=== PATIENT | female | born 1955 | race Caucasian/White ===

== ENCOUNTER 2020-01-13 10:49 | Outpatient (CLI) | payer MEDICARE, BC, SELFPAY ==
--- NOTE | 2020-01-13 11:02 | MM_ITS ---
WS: [id number] BILATERAL SCREENING DIGITAL MAMMOGRAM WITH CAD HISTORY: SCREEN COMPARISON: 07/23/2018 and 06/24/2017 and 06/05/2016 Bilateral CC and MLO views submitted. Computer aided detection analyzed. Breast composition: There are scattered areas of fibroglandular density. No suspicious masses, microc alcifications or architectural distortion. Benign calcifications in the anterior aspect of each breas t. MM/[place] [id number] IMPRESSION: BI-RADS: 2-Benign FOLLOW UP: 1 Year Follow-up
--- NOTE | 2020-01-13 14:08 | XR_ITS ---
WS: [id number] SCREENING DEXA SCAN [employer] CLINICAL INFORMATION: SCREENING COMPARISON: December 16, 2017 FINDINGS: The L1-L4 bone mineral density measures 1.337 g/cm2. This corresponds to a T score score of 1.3 and Z score of 2.6. Left femoral neck bone mineral density measures 0.895 g/cm2. This corresponds to a T score of -0.9 an d Z score of 0.1. Right femoral neck bone mineral density measures 0.963 g/cm2. This corresponds to a T score -0.4of an d Z score of 0.7. Mean femoral neck bone mineral density measures 0.929 g/cm2. This corresponds to a T score of -0.6 an d Z score of 0.4. XR/XR DEXA axial skeleton* [id number] IMPRESSION: Normal bone mineralization. Patient's FRAX calculated 10 year probability for major osteoporotic fracture i s 8.0 % and osteoporotic hip fracture is 0.6%.
== END 2020-01-13 10:50 | disposition home or self-care (01) ==
LOC: RADSHAW 10:56
PROVIDERS: PCP Family Medicine; Visit Provider Family Medicine
DX: Z12.31 Encounter for screening mammogram for malignant neoplasm of breast (principal); Z13.820 Encounter for screening for osteoporosis
CPT/HCPCS: 77067; 77080

== ENCOUNTER 2021-06-01 19:28 | Emergency (ER) | payer MEDICARE, BC, SELFPAY ==
[2021-06-01 19:46] VITALS: BP 134/65; PULSE 74; RESP 16; TEMP 36.6; O2SAT 97; BMI 25.8
--- NOTE | 2021-06-01 20:45 | XRR_ITS ---
PROCEDURE INFORMATION: Exam: XR Right Hip Exam date and time: 06/01/2021 8:45 PM Age: 65 years old Clinical indication: Injury or trauma; Fall; Blunt trauma (contusions or hematomas); Right; Patient HX: Patient slipped on ice and fell this evening. C/O RT hip pain. ; Additional info: Fall, pain TECHNIQUE: Imaging protocol: XR Right hip. Views: 2 or 3 views hip with pelvis when performed. COMPARISON: [facility] Lumbar Spine 5 views 05/29/2017 10:27 AM FINDINGS: Bones/joints: Alignment is normal. Joint spaces are preserved. No acute fracture. The visible portion of the pelvis and sacrum is intact. Soft tissues: Visible soft tissues are unremarkable.
--- NOTE | 2021-06-01 20:45 | XRR_ITS ---
Ordering Provider/Ordering MD: Nato Leija MD Date of Service: 06/01/21 Procedure(s): XR hip RT 2-3V wo/w pel* [id number] Accession Number(s): [id number] Report Number: [id number] PROCEDURE INFORMATION: Exam: XR Right Hip Exam date and time: 06/01/2021 8:45 PM Age: 65 years old Clinical indication: Injury or trauma; Fall; Blunt trauma (contusions or hematomas); Right; Patient HX: Patient slipped on ice and fell this evening. C/O RT hip pain. ; Additional info: Fall, pain TECHNIQUE: Imaging protocol: XR Right hip. Views: 2 or 3 views hip with pelvis when performed. COMPARISON: [facility] Lumbar Spine 5 views 05/29/2017 10:27 AM FINDINGS: Bones/joints: Alignment is normal. Joint spaces are preserved. No acute fracture. The visible portion of the pelvis and sacrum is intact. Soft tissues: Visible soft tissues are unremarkable. XR/XR hip RT 2-3V wo/w pel* [id number] IMPRESSION: No acute findings. Dictated By: Charlie Mercer MD Signed By: Charlie Mercer MD Signed Date/Time: 06/01/212116 DD/ 44 PROCEDURE INFORMATION: Exam: XR Left Hip Exam date and time: 06/01/2021 8:45 PM Age: 65 years old Clinical indication: Injury or trauma; Fall; Blunt trauma (contusions or hematomas); Patient HX: Patient slipped on ice and fell this evening. C/O left hip pain. ; Additional info: Fall, pain TECHNIQUE: Imaging protocol: XR Left hip. Views: 2 or 3 views hip with pelvis when performed. COMPARISON: [facility] Lumbar Spine 5 views 05/29/2017 10:27 AM FINDINGS: Bones/joints: Alignment is normal. Joint spaces are preserved. No acute fracture. The visible portion of the pelvis and sacrum is intact. Soft tissues: Visible soft tissues are unremarkable. [facility] XR/XR hip BI 3-4V wo/w pel [id number] IMPRESSION: No acute findings.
--- NOTE | 2021-06-01 23:42 | W.ED.FALL ---
HPI - Fall General: Chief Complaint: Fall Stated Complaint: Fell on Ice\Back Pain Time Seen by Provider: 06/01/21 23:33 History of Present Illness: Patient is a 65-year-old female who comes to the ED with left hip pain after fall. Fall occurred just prior to arrival. Patient slipped on ice and fell backwards landing on left hip area. Patient says she landed on some gravel. Denies any head trauma or loss of consciousness. She reports having 9 out of 10 pain in her left hip area and says it hurts when she stands up and walks. Denies any pain radiating down the leg. Denies any weakness to lower extremities, bladder or bowel incontinence or pelvic anesthesia. Associated symptoms-after fall: Denies abdominal pain, chest pain, headache(s), hematuria or neck pain Review of Systems Const: Denies: fever(s), chills or fatigue Eyes: Denies: change in vision or eye discomfort ENMT: Denies: throat pain, odynophagia, nasal discharge or nasal congestion Card: Denies: chest pain, palpitations, edema, swelling of feet/ankles, dyspnea on exertion or orthopnea Resp: Denies: dyspnea, productive cough or non-productive cough GI: Denies: abdominal pain, nausea, vomiting, diarrhea, constipation or hematochezia : Denies: flank pain, dysuria or hematuria Musc: Reports: back pain (left hip); Denies: neck pain or extremity swelling Skin/Breast: Denies: rash or new lesions Neuro: Denies: headache(s), numbness in extremities or weakness in extremities [facility] ED PFSH: Medical History No pertinent family history No pertinent past medical history Physical Exam Const: COMMON NORMALS: no acute distress, patient oriented x3, healthy appearing and alert GENERAL APPEARANCE: cooperative and comfortable HENMT: COMMON NORMALS: normocephalic HEAD & SCALP: normocephalic MOUTH: Normal oral and palatal mucosa present THROAT: posterior oropharynx normal and uvula midline Neck/C-Spine: COMMON NORMALS: supple GENERAL: Yes normal visual inspection Resp: COMMON NORMALS: normal respiratory effort, No retractions, No use of accessory muscles and clear to auscultation bilaterally AUSCULTATION: clear to auscultation bilaterally Cardio: COMMON NORMALS: regular rate, regular rhythm, S1 normal heart sound present, S2 normal heart sound present, No gallops present (Cardio), No clicks present (Cardio), No murmurs present (Cardio) and Peripheral pulses 2+ throughout RATE: regular rate RHYTHM: regular rhythm HEART SOUNDS: S1 normal heart sound present and S2 normal heart sound present PERIPHERAL PULSES: Peripheral pulses 2+ throughout GI: COMMON NORMALS: Normal to inspection, nondistended, normoactive bowel sounds present, Soft to palpation, non-tender and no masses PALPATION: Yes Soft to palpation : COMMON NORMALS: Yes no CVA tenderness BLADDER/KIDNEY EXAM: Yes no CVA tenderness Back/Pelvis: COMMON NORMALS: no CVA tenderness LUMBAR SPINE/LOWER BACK: No lumbar spinal tenderness and Yes other soft tissue findings Other lumbar soft tissue findings laterality: left Left other lumbar soft tissue findings details: tenderness (lower lateral over il iliac crest) Extremity: COMMON NORMALS: normal to inspection Neuro: COMMON NORMALS: patient oriented x3 and moves all extremities SENSORIUM/ORIENTATION: Yes alert Skin: GENERAL SKIN EXAM: dry skin Course Vital Signs: Vital signs: Vital Signs Temperature 97.9 F 06/01/21 19:46 Pulse Rate 60 06/01/21 23:47 Respiratory Rate 16 06/01/21 23:47 Blood Pressure 137/79 06/01/21 23:47 Pulse Oximetry 99 06/01/21 23:47 MDM - Fall Medical Decision Making Patient is a 65-year-old female who comes to the ED with left hip pain after having a fall. Patient slipped on the snow on ice and fell hitting the gravel. Most of her pain is in the left hip. She says it hurts when she ambulates. Vitals stable patient has some tenderness upon palpation over the left iliac crest region. Denies any cauda equina symptoms. Pain does not radiate down the leg. X-ray of hip and pelvis show no acute fractures or findings. Patient diagnosed with acute hip pain and discharged home with a prescription for Celebrex and methocarbamol. She was told to follow-up with her PCP in the next 5 to 7 days for reevaluation. Return to ED precautions given. Patient understood and agreed with plan. Lab Data Radiology Impressions Hip/Pelvis X-Ray 06/01/21 20:45 IMPRESSION: No acute findings. Discharge Plan Discharge Patient Disposition: Home Clinical Impression: Acute hip pain Qualifiers: Laterality: left Qualified Code(s): M25.552 - Pain in left hip Fall as cause of accidental injury at home as place of occurrence Qualifiers: Encounter type: initial encounter Qualified Code(s): W19.XXXA - Unspecified fall, initial encounter Condition: Stable Prescriptions: New methocarbamol 750 mg tablet 750 mg PO Q8H PRN (Reason: muscle pain and spasms) Qty: 20 0RF celecoxib 100 mg capsule 100 mg PO BID PRN (Reason: pain) Qty: 20 0RF Discharge Orders: Discharge ED (Routine); Ordered 06/01/21 Ordered By: Gino Sandhu Referrals: Simon Law MD [Primary Care Provider] - Discharge Diet: Regular Discharge Activity: Increase activity as tolerated Patient Instructions: Fall Prevention (ED), Hip Pain (ED) Activity Restrictions/Additional Instructions: Follow-up with medical provider as directed in 5 to 7 days for reevaluation. Apply cold pack on sore area of hip and rest, limit activity for the next couple days to allow for healing. Take medications as prescribed. Methocarbamol is a muscle relaxer and can cause some drowsiness so take at night before going to bed. Return to the ER or your medical provider if condition worsens. Please read and understand discharge instructions. Thank you for choosing [facility] for your healthcare needs today. Please realize this is an emergency room and that we are providing you with a medical screening exam and this may not be complete and all inclusive of all the testing and or work up that you may need to determine your ailment or severity of your illness. It is very important that you follow up as instructed or that you return to the Emergency Department should you have concerns or if your condition changes or worsens in any way. Coding Level of Care Code ED Grading Machine Feeder for [employer] Exam Comprehensive
[2021-06-01 23:47] VITALS: BP 137/79; PULSE 60; RESP 16; O2SAT 99
[2021-06-01] MEDS: orphenadrine 30 mg/mL Inj 2 mL 60 MG IM (23:55)
[2021-06-01] MEDS: HYDROcodone-acetaminophen 5-325 mg Tablet 1 TAB PO (23:55)
[2021-06-02] MEDS: HYDROcodone-acetaminophen 5-325 mg Tablet 1 TAB PO (00:01)
== END 2021-06-02 00:02 | disposition home or self-care (01) ==
PROVIDERS: Emergency Provider Physician Assistant; PCP Family Medicine
DX: M25.552 Pain in left hip (principal); W00.0XXA Fall on same level due to ice and snow, initial encounter
CPT/HCPCS: 73502; 73522; 96372; 99283; J2360

== ENCOUNTER 2021-06-06 13:59 | Emergency (ER) | payer MEDICARE, BC, SELFPAY ==
[2021-06-06 14:13] VITALS: BP 128/71; PULSE 73; RESP 18; TEMP 36.1; O2SAT 98; BMI 25.8
--- NOTE | 2021-06-06 19:16 | W.ED.BACK ---
HPI - Back Pain/Injury General: Chief Complaint: Back Pain/Injury Stated Complaint: Severe pain on lt back lower side Time Seen by Provider: 06/06/21 19:16 History of Present Illness: Patient fell on 01 June when she slipped on the ice landing on her left side. Patient was evaluated in the ER and noted no fractures of her left hip or pelvis. Patient comes back today for persistent left rib pain. Patient appears nontoxic, patient does appear in moderate pain. MD elicited complaint: back pain Pertinent past history: recent trauma Onset (ago): day(s) Severity: moderate Exacerbating factors: movement Relieving factors: none Review of Systems Musc: Reports: back pain (Left posterior rib pain.) [facility] ED PFSH: Medical History No pertinent family history No pertinent past medical history Physical Exam Const: COMMON NORMALS: alert HENMT: COMMON NORMALS: atraumatic HEAD & SCALP: atraumatic Eye: GENERAL EYE: appearance normal, both eyes and all related structures Neck/C-Spine: COMMON NORMALS: full ROM Chest: CHEST: Yes tenderness (Left posterior lower ribs) Resp: COMMON NORMALS: normal respiratory effort and clear to auscultation bilaterally AUSCULTATION: clear to auscultation bilaterally Cardio: COMMON NORMALS: regular rate and regular rhythm RATE: regular rate RHYTHM: regular rhythm GI: COMMON NORMALS: Soft to palpation and non-tender PALPATION: Yes Soft to palpation Extremity: COMMON NORMALS: normal to inspection Neuro: SENSORIUM/ORIENTATION: Yes alert Psych: COMMON NORMALS: cooperative Skin: COMMON NORMALS: no rashes or lesions noted GENERAL SKIN EXAM: no rashes or lesions noted Course Vital Signs: Vital signs: Vital Signs Temperature 97.0 F L 06/06/21 14:13 Pulse Rate 73 06/06/21 14:13 Respiratory Rate 18 06/06/21 14:13 Blood Pressure 128/71 06/06/21 14:13 Pulse Oximetry 98 06/06/21 14:13 MDM - Back Pain/Injury Medical Decision Making 65-year-old female comes in today with pain to the left rib area. On exam patient has tenderness in the left posterior lower ribs. Respirations are even lungs are clear to auscultation. Vital signs are normal. Differential diagnosis includes fracture, sprain, intervertebral disc disease. X-ray of the ribs and chest indicated normal lung expansion, no signs of rib fracture, significant degenerative disc disease of the thoracic spine. I believe patient may have a rib fracture that just is not seen with plain films due to the tenderness in this rib area. No signs of serious illness or injury is noted. Patient was given a dose of morphine in the ER which did improve her pain. We will write for short course of hydrocodone for further treatment. Patient reported understanding and agreed to plan with need for follow-up with primary care. Labs Radiology Impressions Ribs X-Ray 06/06/21 19:32 IMPRESSION: 1. No acute left rib fracture or other acute osseous abnormality. 2. No acute abnormality demonstrated. Discharge Plan Discharge Patient Disposition: Home Clinical Impression: Rib pain on left side, DDD (degenerative disc disease), thoracic Condition: Stable Prescriptions: New hydrocodone-acetaminophen 5-325 mg tablet 1 tab PO Q6H PRN (Reason: pain (scale score 7-10)) Qty: 14 0RF No Action methocarbamol 750 mg tablet 750 mg PO Q8H PRN (Reason: muscle pain and spasms) Qty: 20 0RF celecoxib 100 mg capsule 100 mg PO BID PRN (Reason: pain) Qty: 20 0RF Discharge Orders: Discharge ED (Routine); Ordered 06/06/21 Ordered By: Maurilio Juan Referrals: Simon Law MD [Primary Care Provider] - Discharge Diet: Usual diet Discharge Activity: Increase activity as tolerated Patient Instructions: Musculoskeletal Pain (ED), Opioid Safety Activity Restrictions/Additional Instructions: Activity as tolerated. Use a walker to help with walking. Use acetaminophen for further pain relief. Use hydrocodone for breakthrough pain. Use ice and heat to the area for further comfort. Drink plenty of water with medication. Follow-up with primary care for further evaluation and treatment. Coding Level of Care Code ED Assistant Cross Country Coach for Chg Fwd History Problem Focused Exam Comprehensive Medical Decision Making Low Complexity Time Spent (min) 20
--- NOTE | 2021-06-06 19:32 | XRR_ITS ---
PROCEDURE INFORMATION: Exam: XR Left Ribs with PA Chest Exam date and time: 06/06/2021 7:32 PM Age: 65 years old Clinical indication: Pain; Other: Lt. Lower ribs; Additional info: Fall injury TECHNIQUE: Imaging protocol: XR Left ribs with PA chest. Views: 3 views COMPARISON: [place] Chest 1 [place] [id number] 03/16/2018 6:12 PM FINDINGS: Lungs: Unremarkable. No consolidation. Pleural spaces: No pleural effusion. No pneumothorax. Heart/Mediastinum: Unremarkable. No cardiomegaly. Vasculature: The thoracic aorta is mildly atherosclerotic. Bones/joints: Degenerative spine changes are noted. No acute left rib fracture or other acute osseous abnormality. XR/XR ribs LT mn 3V w CXR1V [id number] IMPRESSION: 1. No acute left rib fracture or other acute osseous abnormality. 2. No acute abnormality demonstrated.
[2021-06-06] MEDS: morphine 4 mg/mL SDV 1 mL IM (19:43)
== END 2021-06-06 20:41 | disposition home or self-care (01) ==
PROVIDERS: Emergency Provider Nurse Practitioner Family; PCP Family Medicine
DX: R07.81 Pleurodynia (principal); M51.34 Other intervertebral disc degeneration, thoracic region
CPT/HCPCS: 71101; 96372; 99283; J2270

== ENCOUNTER 2021-10-26 14:47 | Outpatient (CLI) | payer MEDICARE, BC, SELFPAY ==
--- NOTE | 2021-10-26 14:56 | MR_ITS ---
WS: [id number] MRI BRAIN WITH AND WITHOUT CONTRAST HISTORY: EXPRESSIVE APHASIA COMPARISON: 05/14/2016 TECHNIQUE: Multiplanar imaging performed through the brain with MultiHance 17 ml's IV. No acute infarcts are seen. Ramirez-white matter differentiation is well preserved. Mild progressive of small vessel ischemic disease. No prior infarct. No hemorrhage. No susceptibility artifacts or prior lacunar infarcts. Ventricles and extra-axial spaces are normal. Clivus and pituitary gland are normal. Visualized posterior fossa and brainstem are also normal. Postcontrast images are negative for masses or vascular malformations. Dural venous sinuses are normal. Paranasal sinuses: Well aerated with no significant disease. Mastoid air cells: Normal. Calvarium and scalp: Normal. MR/MR head wo/w con [id number] IMPRESSION: 1. No acute infarct or enhancing mass. 2. No hemorrhage. 3. Mild small vessel ischemic disease with mild progression since 2016.
[2021-10-26] MEDS: gadobenate dimeglumine 20 mL vial IV (15:40)
== END 2021-10-26 14:48 | disposition home or self-care (01) ==
PROVIDERS: PCP Family Medicine; Visit Provider Family Medicine
DX: R47.01 Aphasia (principal)
CPT/HCPCS: 70553

== ENCOUNTER → 2023-03-24 08:39 | Outpatient (BNVA) | payer MEDICARE, OTHER, BC, SELFPAY | PROVIDERS: PCP Family Medicine; Referring Provider Family Medicine; Visit Provider Specialist | DX: G30.9 Alzheimer's disease, unspecified (principal); F02.80 Dementia in other diseases classified elsewhere, unspecified severity, without behavioral disturbance, psychotic disturbance, mood disturbance, and anxiety | CPT/HCPCS: 96116; 99205 ==

== ENCOUNTER 2023-04-22 07:51 | Outpatient (CLI) | payer MEDICARE, BC, SELFPAY ==
--- NOTE | 2023-04-22 08:45 | MR_ITS ---
WS: [id number] MRI HEAD WITHOUT CONTRAST TECHNIQUE: Sagittal T1, T2 axial, T2 axial FLAIR, axial and coronal T1 images, axial susceptibility w eighted imaging, axial diffusion weighted images, and coronal T2 images were obtained. CLINICAL INFORMATION: G30.9 - Alzheimer's disease, unspecified COMPARISON: MRI 10/26/2021 FINDINGS: No evidence of restricted diffusion to suggest acute ischemia. Ventricular system and basal cisterns are patent. Mild small vessel changes. Moderate parenchymal volume loss. Normal posterior fossa. Norm al vascular flow voids at the skull base. No extra-axial fluid collections. No evidence of mass or ma ss effect. Paranasal sinuses and mastoid air cells are well aerated. Normal optic chiasm and pituitary infundibu lum. Moderate symmetric atrophy temporal lobes and hippocampal formations. No hemosiderin on the susc eptibly weighted images. IMPRESSION: 1. No evidence of restricted diffusion to suggest acute ischemia. 2. Mild small vessel changes with moderate parenchymal volume loss which appears slightly progressed compared to 2021 3. Parenchymal volume loss slightly more prominent in the bilateral parietal and temporal lobes whic h can be seen with Alzheimer's dementia in the appropriate clinical setting 4. No hemosiderin on susceptibly weighted images. 5. Moderate symmetric atrophy temporal lobes and hippocampal formations.
== END 2023-04-22 07:52 | disposition home or self-care (01) ==
LOC: RAD 07:51
PROVIDERS: PCP Family Medicine; Visit Provider Specialist
DX: G30.9 Alzheimer's disease, unspecified (principal); F02.80 Dementia in other diseases classified elsewhere, unspecified severity, without behavioral disturbance, psychotic disturbance, mood disturbance, and anxiety
CPT/HCPCS: 70551

== ENCOUNTER → 2023-07-02 11:12 | Outpatient (BNVA) | payer MEDICARE, BC, SELFPAY | PROVIDERS: PCP Family Medicine; Visit Provider Specialist | DX: G30.9 Alzheimer's disease, unspecified (principal); F02.80 Dementia in other diseases classified elsewhere, unspecified severity, without behavioral disturbance, psychotic disturbance, mood disturbance, and anxiety | CPT/HCPCS: 99213 ==

== ENCOUNTER 2023-08-03 11:39 | Emergency (ER) | payer MEDICARE, BC, SELFPAY ==
[2023-08-03 11:39] VITALS: BP 139/84; PULSE 62; RESP 18; TEMP 36.5; O2SAT 99
--- NOTE | 2023-08-03 11:47 | ED_ITS ---
HPI - Back Pain/Injury General: Chief Complaint: Back Pain/Injury Stated Complaint: back pain Time Seen by Provider: 08/03/23 11:42 Source: patient and family () Mode of arrival: wheelchair Limitations: no limitations History of Present Illness: Patient is a 67-year-old female presents to ED today along with her for evaluation of lower back pain. Patient states she is having pain radiating down into her right buttock and all the way down to my foot . Patient states she has had similar discomforts in the past that normally will go away with time and conservative treatment at home. Patient's states he gave her two hydrocodone earlier today that somewhat seem to take the edge off but she doesn't like how they make her feel. Patient has not noticed any weakness to her legs. She is not having any numbness, tingling, loss of sensation, color/temperature changes. Primary care is Dr. Law. Denies saddle anesthesia or bowel or bladder dysfunction. Symptoms have been present for about a month. MD elicited complaint: back pain Pertinent past history: prior back pain Onset (ago): month(s) Timing: intermittent Severity: severe Similar Symptoms Previously: Yes Location: lumbar spine and right lower back Radiation: buttocks and right leg below the knee Exacerbating factors: sitting upright Relieving factors: walking Associated symptoms: Reports no associated symptoms; Deny dysuria Treatments prior to arrival: prescription analgesics Work related injury: No Review of Systems : Denies: flank pain or dysuria Musc: Reports: back pain; Denies: neck pain, extremity pain, extremity swelling, joint pain, joint swelling, joint redness, joint warmth, joint stiffness, limited range of motion, muscle cramps, muscle weakness or decrease in muscle mass Skin/Breast: Denies: rash Neuro: Denies: headache(s), numbness in extremities, weakness in extremities or sensory changes PFS ED PFSH: Medical History No pertinent past medical history No pertinent family history Physical Exam Const: COMMON NORMALS: average body habitus, patient oriented x3, no limitations, healthy appearing, alert and well nourished GENERAL APPEARANCE: cooperative and in distress (appears uncomfortable secondary to pain) Back/Pelvis: COMMON NORMALS: thoracic and lumbar spine normal to inspection and no thoracic nor lumbar tenderness THORACIC SPINE/UPPER BACK: Yes thoracic ROM normal, No thoracic spinal tenderness, No paraspinal muscle tenderness and No paraspinal muscle spasm LUMBAR SPINE/LOWER BACK: No lumbar spinal tenderness and Yes straight leg raise negative bilaterally PELVIS: Yes sciatic notch tenderness on the right SACROILIAC JOINTS: Yes SI joint(s) abnormal SI joint details: tender to palpation (R) SACRUM: no tenderness COCCYX: no tenderness Extremity: COMMON NORMALS: normal to inspection, full ROM, capillary refill normal, no clubbing, cyanosis or edema, no calf tenderness and no pedal edema GENERAL: Yes normal exam except as noted Neuro: COMMON NORMALS: patient oriented x3, moves all extremities, no focal motor deficits and no sensory deficits noted SENSORIUM/ORIENTATION: Yes alert DEEP TENDON REFLEXES: Right patellar reflex intensity grade: 2+ and Left patellar reflex intensity grade: 2+ Skin: COMMON NORMALS: no rashes or lesions noted GENERAL SKIN EXAM: no rashes or lesions noted Course Vital Signs: Vital signs: Vital Signs Temperature 97.7 F 08/03/23 11:39 Pulse Rate 65 08/03/23 12:22 Respiratory Rate 18 08/03/23 12:22 Blood Pressure 134/83 08/03/23 12:22 Pulse Oximetry 97 08/03/23 12:22 Oxygen Delivery Me thod Room Air 08/03/23 12:22 MDM - Back Pain/Injury Medical Decision Making Patient here for right-sided sciatica-like symptoms. No red flags on patient's history or physical exam. She was given IM steroids, NSAID, muscle relaxer here with good relief of her symptoms. She was ambulatory here without difficulty or assistance. Patient will be put on similar medications at home. She already takes Celebrex twice daily that she can continue. Recommend follow-up with primary care in 1 to 2 weeks if symptoms do not begin to improve. Differential Diagnosis Likely lumbar radiculopathy, sciatica and strain of lumbar region Medical Records I reviewed the patient's medical records. No radiology studies performed this visit Discharge Plan Discharge Patient Disposition: Home Clinical Impression: Sciatica Qualifiers: Laterality: right Qualified Code(s): M54.31 - Sciatica, right side Condition: Stable Prescriptions: New methocarbamol 500 mg tablet 1,000 mg PO Q8H Qty: 30 0RF prednisone 10 mg tablet 10 mg PO DAILY 6 Days Qty: 20 0RF Rx Instructions: Take 5 tabs on day 1-2, 4 tabs on day 3, 3 tabs on day 4, 2 tabs on day 5, and 1 tab on day 6 tramadol 50 mg tablet 50 mg PO Q6H PRN (Reason: pain) Qty: 14 0RF No Action losartan 50 mg tablet 1 tab PO DAILY rosuvastatin [Crestor] 10 mg tablet 1 tab PO DAILY celecoxib 200 mg capsule 200 mg PO BID Vitamin C 500 mg Capsule, Extended Release 500 mg PO DAILY galantamine 8 mg tablet 8 mg PO BID Vitamin D3 25 mcg (1,000 unit) Capsule 25 mcg PO DAILY Women's One Daily 18 mg iron-400 mcg-500 mg Ca Tablet 1 tab PO DAILY Hair, Skin and Nails (biotin) 10,000 mcg Tablet,Chewable 10,000 mcg PO DAILY Discharge Orders: Discharge ED (Routine); Ordered 08/03/23 Ordered By: Chapis Sahni Referrals: Simon Law MD [Primary Care Provider] - Patient Instructions: Piriformis Syndrome (ED), Sciatica Activity Restrictions/Additional Instructions: As we discussed we will treat you with steroids, pain medications, muscle relaxers. Continue your Celebrex that you are already prescribed as this is an anti-inflammatory. Please follow-up with your primary care provider in 1 to 2 weeks if symptoms do not seem to be improving. 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
[2023-08-03 12:01] VITALS: BP 134/83; PULSE 72; RESP 16; O2SAT 98
[2023-08-03] MEDS: orphenadrine 30 mg/mL Inj 2 mL 60 MG IM (12:19)
[2023-08-03] MEDS: ketorolac 30 mg/mL INJ IM (12:19)
[2023-08-03] MEDS: dexamethasone 10 mg/mL INJ 8 MG IM (12:19)
[2023-08-03 12:22] VITALS: BP 134/83; PULSE 65; RESP 18; O2SAT 97
--- NOTE | 2023-08-03 13:03 | PC.NURSE ---
PATIENT AMBULATED AROUND ROOM. PATIENT STATED BEFORE AMBULATING PAIN 0/10, AFTER AMBULATION 3/10. PROVIDER AWARE.
== END 2023-08-03 13:23 | disposition home or self-care (01) ==
PROVIDERS: Emergency Provider Physician Assistant; PCP Family Medicine
DX: M54.31 Sciatica, right side (principal)
CPT/HCPCS: 96372; 99284; J1100; J1885; J2360

== ENCOUNTER 2023-08-21 09:42 | Outpatient (CLI) | payer MEDICARE, BC, SELFPAY ==
--- NOTE | 2023-08-21 10:03 | MR_ITS ---
WS: [id number] MRI LUMBAR SPINE NONCONTRAST TECHNIQUE: Sagittal T1, T2 and STIR imaging. Axial T1 and T2 imaging. CLINICAL INFORMATION: LUMBAGO-SCIATICA COMPARISON: MRI 2009 FINDINGS: Mild lumbar curve. No acute compression. Straightening of the normal lumbar lordosis. Thoracolumbar k yphosis. L1-L2: Mild disc bulge with osteophytic ridging. Mild facet arthropathy. Foramen are patent. L2-L3: Mild disc bulging with slight effacement of the ventral thecal sac. Moderate facet arthropathy . Mild RIGHT foraminal narrowing. LEFT foramen is patent. L3-L4: Shallow central protrusion. Moderate central canal stenosis with impingement subarticular rece ss RIGHT greater than LEFT. Moderate facet arthropathy. Mild LEFT greater than RIGHT foraminal narrow ing. L4-L5: Mild disc bulging with moderate central canal stenosis. Impingement subarticular recess bilate rally. Moderate to advanced facet arthropathy. RIGHT foraminal protrusion with moderate RIGHT foramin al narrowing. L5-S1: Broad-based central protrusion impinges the traversing LEFT greater than RIGHT S1 nerve roots. Mild central canal stenosis. Moderate facet arthropathy. Mild RIGHT greater than LEFT foraminal narr owing. Visualized pelvic bony structures: Normal. Paravertebral soft tissues: Normal. Small RIGHT renal cysts. IMPRESSION: 1. Moderate central canal stenosis L3-L4 and L4-L5 with impingement of the subarticular recess bilat erally. 2. Mild central canal stenosis L5-S1 with a shallow central protrusion and impingement on the concepcion sing LEFT greater than RIGHT S1 nerve roots. 3. Moderate RIGHT L4-5 foraminal narrowing impinges the exiting RIGHT L4 nerve root. 4. Mild RIGHT greater than LEFT L5-S1 foraminal narrowing. 5. Moderate to advanced facet arthropathy L4-L5 and L5-S1.
== END 2023-08-21 09:43 | disposition home or self-care (01) ==
LOC: RAD 09:43
PROVIDERS: PCP Family Medicine; Visit Provider Family Medicine
DX: M51.17 Intervertebral disc disorders with radiculopathy, lumbosacral region (principal); M48.061 Spinal stenosis, lumbar region without neurogenic claudication; M51.27 Other intervertebral disc displacement, lumbosacral region; M48.07 Spinal stenosis, lumbosacral region; M47.817 Spondylosis without myelopathy or radiculopathy, lumbosacral region; M47.26 Other spondylosis with radiculopathy, lumbar region
CPT/HCPCS: 72148

== ENCOUNTER 2023-10-20 13:31 | Outpatient (RCR) | payer MEDICARE, BC, SELFPAY | END 2023-10-26 23:59 | disposition home or self-care (01) | LOC: SST 13:31 | PROVIDERS: Visit Provider Family Medicine | DX: R13.0 Aphagia (principal) | CPT/HCPCS: 92507; 92523 ==

== ENCOUNTER 2023-10-27 06:00 | Outpatient (RCR) | payer MEDICARE, BC, SELFPAY | END 2023-11-26 23:59 | disposition home or self-care (01) | LOC: SST 06:00 | PROVIDERS: Visit Provider Family Medicine | DX: R47.01 Aphasia (principal) | CPT/HCPCS: 92507 ==

== ENCOUNTER 2024-06-18 09:55 | Emergency (ER) | payer MEDICARE, BC, SELFPAY ==
[2024-06-18 10:03] VITALS: BP 119/69; PULSE 71; RESP 18; TEMP 36.6; O2SAT 99; BMI 25.8
--- NOTE | 2024-06-18 10:16 | CT_ITS ---
WS: [id number] CT HEAD NONCONTRAST HISTORY: severe OROPEZA TECHNIQUE: Contiguous axial imaging performed through the brain. Bone and soft tissue windows. Sagittal and coronal reformats reviewed. All CT scans at [facility] use at least one of these dose optimization techniques: automated exposure control; mA and/or kV adjustment per patient size (includes targeted exams where dose is matched to clinical indication); or iterative reconstruction. DLP: 1084.99 mGy.cm COMPARISON: 04/18/2016, MRI brain 04/22/2023 No acute intracranial hemorrhage, midline shift or mass effect. Mild to moderate volume loss and small vessel disease. Progressed since 2016 CT. No prior infarct. Ventricles: Normal size with no hydrocephalus. No inferior displacement of the cerebellar tonsils. Paranasal sinuses: Frothy secretions in the posterior RIGHT ethmoid air cells and the RIGHT sphenoid sinus. No air-fluid levels. Mastoid air cells: Well pneumatized. Calvarium and scalp: Skull is intact with no soft tissue edema or swelling. CT/CT head wo con* [id number] IMPRESSION: 1. No acute intracranial hemorrhage or edema. 2. Mild to moderate volume loss and small vessel disease. Mild progression sin ce 2016.
--- NOTE | 2024-06-18 10:30 | W.ED.HA ---
Documented by User: BERKLEY Davies 06/18/24 12:57 HPI - Headache General: Chief Complaint: Headache Stated Complaint: Dr Felder - brain bleed Time Seen by Provider: 06/18/24 10:16 Source: patient and family Mode of arrival: ambulatory Limitations: no limitations History of Present Illness: Patient is a 68-year-old female with a known history of dementia here with her after they were sent by Isaac Stark for further evaluation of a headache. Patient has had a headache to her right temporal/parietal region over the past 3 days. She does tell me she has a history of migraines but cannot seem to tell me if this one is the same or different. Pain seems to be brief paroxysmal stabbling like sensations. No injury/trauma. She is not on anti-coagulation. She does have a history of dementia and has seen Dr. Molina in the past for this. History of difficulty with word finding-Isaac Stark had mentioned this may be worse than her baseline. She has had recent URI like symptoms and reportedly tested positive for Influenza A. MD elicited complaint: headache and migraine Pertinent past history: migraines Onset (ago): day(s) Location: right, temporal and parietal Quality & Timing: sharp and intermittent Exacerbating factors: none Relieving factors: nothing Associated symptoms: Deny chest pain, fever(s), nausea, rash or vomiting Related Data Home Medications ?Medication ?Instructions ?Recorded ?Confirmed losartan 50 mg tablet 1 tab PO DAILY 03/24/23 06/18/24 rosuvastatin 10 mg tablet (Crestor) 1 tab PO DAILY 03/24/23 06/18/24 ascorbic acid (vitamin C) 500 mg 500 mg PO DAILY 08/03/23 06/18/24 capsule,extended release (Vitamin C) biotin 10,000 mcg chewable tablet 10,000 mcg PO DAILY 08/03/23 06/18/24 (Hair, Skin and Nails (biotin)) celecoxib 200 mg capsule 200 mg PO BID 08/03/23 06/18/24 cholecalciferol (vitamin D3) 25 25 mcg PO DAILY 08/03/23 06/18/24 mcg (1,000 unit) capsule (Vitamin D3) galantamine 8 mg tablet 8 mg PO BID 08/03/23 06/18/24 multivit-iron 18 mg-folic acid 400 1 tab PO DAILY 08/03/23 06/18/24 mcg-calcium 500 mg-minerals tablet (Women's One Daily) gabapentin 100 mg capsule 300 mg PO QPM 06/18/24 06/18/24 Previous Rx's ?Medication ?Instructions ?Recorded sumatriptan succinate 25 mg tablet See Rx Instructions PO .COMPLEX 06/18/24 (Imitrex) #14 tabs Allergies Allergy/AdvReac Type Severity Reaction Status Date / Time No Known Allergies Allergy Verified 08/03/23 11:46 Review of Systems Const: Reports: chills, body aches and fatigue; Denies: fever(s) Eyes: Denies: change in vision, blurry vision, photophobia or seeing flashes ENMT: Reports: nasal discharge and nasal congestion; Denies: ear or mastoid pain Card: Denies: chest pain Resp: Reports: non-productive cough and chest congestion GI: Denies: abdominal pain, nausea, vomiting or diarrhea : Denies: flank pain or dysuria Musc: Denies: neck pain, back pain, extremity pain, extremity swelling, joint pain, joint swelling or joint redness Skin/Breast: Denies: rash Neuro: Reports: headache(s) and other (problems with word finding); Denies: numbness in extremities, weakness in extremities, sensory changes or dizziness PFS ED PFSH: Medical History No pertinent past medical history No pertinent family history Physical Exam Const: COMMON NORMALS: no acute distress, average body habitus, healthy appearing, alert and well nourished GENERAL APPEARANCE: cooperative ORIENTATION/CONSCIOUSNESS: Yes awake, Yes oriented to person and Yes oriented to place OTHER: hx of dementia HENMT: COMMON NORMALS: normocephalic, atraumatic, hearing grossly normal bilaterally, external ears normal, EAC's normal and TM's normal bilaterally HEAD & SCALP: normal to inspection, normocephalic and atraumatic FACE & SINUS: normal facial exam and face symmetric EXTERNAL EAR: Yes external ears normal EXTERNAL AUDITORY CANAL: EAC's normal TYMPANIC MEMBRANE: TM's normal bilaterally Eye: COMMON NORMALS: Equal, round and reactive pupils present and EOMs intact bilaterally GENERAL EYE: appearance normal, both eyes and all related structures and normal light reflex PUPIL: Yes Equal, round and reactive pupils present DIRECT OPHTHALMOSCOPY: Yes normal light reflex Neck/C-Spine: COMMON NORMALS: full ROM GENERAL: Yes normal visual inspection Resp: COMMON NORMALS: normal respiratory effort and clear to auscultation bilaterally AUSCULTATION: clear to auscultation bilaterally Cardio: COMMON NORMALS: regular rate and regular rhythm RATE: regular rate RHYTHM: regular rhythm Extremity: GENERAL: Yes normal exam except as noted Neuro: MEEK COMA SCALE: document GCS findings [place] coma scale eye opening: Spontaneous Meek coma scale verbal response: Orientated Meek coma scale motor response: Obey commands Meek coma scale total score: 15 COMMON NORMALS: CN's II-XII intact bilaterally, moves all extremities, no focal motor deficits, no sensory deficits noted and gait normal SENSORIUM/ORIENTATION: Yes alert, Yes oriented to person and Yes oriented to place Skin: COMMON NORMALS: no rashes or lesions noted GENERAL SKIN EXAM: no rashes or lesions noted Course Vital Signs: Vital signs: Vital Signs Temperature 97.9 F 06/18/24 10:03 Pulse Rate 71 06/18/24 13:08 Respiratory Rate 18 06/18/24 10:03 Blood Pressure 135/61 06/18/24 13:08 Pulse Oximetry 97 06/18/24 13:08 Oxygen Delivery Me thod Room Air 06/18/24 12:10 MDM - Headache Medical Decision Making Patient is a 68-year-old female here for right temporal/parietal headache for the past [address] scan of her head was unremarkable. CTA imaging of her head and neck unremarkable. Blood work including ESR normal. She was given Reglan/DHE with complete relief of her headache. Upon re-evaluation she is rating it a 0/10. would like something to go home with and can use as needed. Will give her Imitrex but told her she cannot take for 24 hours as she had a ergotamine preparation here. Return precautions discussed. Differential Diagnosis Likely migraine and headache Medical Records I reviewed the patient's medical records. Lab Data I reviewed the patient's lab results. 06/18/24 10:25 06/18/24 10:[address] 06/18/24 10:16 IMPRESSION: 1. No acute intracranial hemorrhage or edema. 2. Mild to moderate volume loss and small vessel disease. Mild progression since 2015. Head/Neck CTA 06/18/24 11:18 IMPRESSION: 1. No cervical carotid artery stenosis. Mild plaque at the LEFT bifurcation. 2. Moderate calcified plaque through the carotid cavernous sinuses. Stenosis estimated at 50%. 3. No thrombus or occlusion of the middle cerebral arteries. 4. No cerebral artery aneurysms. Laboratory Results WBC 5.50 10^3/uL (3.29-11.43) 06/18/24 10:25 RBC 4.12 10^6/uL (3.85-5.65) 06/18/24 10:25 Hgb 12.40 g/dL (11.27-16.99) 06/18/24 10:25 Hct 37.6 % (36-47) 06/18/24 10:25 MCV 91.3 fl (85-98) 06/18/24 10:25 MCH 30.1 pg (27-33) 06/18/24 10:25 MCHC 33.0 g/dL (30-55) 06/18/24 10:25 RDW 12.2 % (12.1-15.1) 06/18/24 10:25 Plt Count 179 10^3/cmm (157-399) 06/18/24 10:25 MPV 9.6 fL (7.4-10.4) 06/18/24 10:25 Neut % (Auto) 72.9 % 06/18/24 10:25 Lymph % (Auto) 13.6 % 06/18/24 10:25 [place] % (Auto) 10.9 % 06/18/24 10:25 Eos % (Auto) 1.3 % 06/18/24 10:25 Baso % (Auto) 1.1 % 06/18/24 10:25 Neut # (Auto) 4.01 10^3/uL (1.8-7.7) 06/18/24 10:25 Lymph # (Auto) 0.8 10^3/uL (0.8-4.8) 06/18/24 10:25 [place] # (Auto) 0.6 10^3/uL (0.2-0.9) 06/18/24 10:25 Eos # (Auto) 0.1 10^3/uL (0.0-0.8) 06/18/24 10:25 Baso # (Auto) 0.1 10^3/uL (0.0-0.1) 06/18/24 10:25 Nucleated RBC % (auto) 0 % 06/18/24 10:25 Nucleated RBCs # 0.0 /100WBC 06/18/24 10:25 ESR 7 mm/hr (0-15) 06/18/24 10:25 Sodium 136 mmol/L (136-145) 06/18/24 10:25 Potassium 4.1 mmol/L (3.5-5.1) 06/18/24 10:25 Chloride 99 mmol/L (98-107) 06/18/24 10:25 Carbon Dioxide 24 mmol/L (22-29) 06/18/24 10:25 Anion Gap 17.1 (5-19) 06/18/24 10:25 BUN 13 mg/dL (8-23) 06/18/24 10:25 Creatinine 0.7 mg/dL (0.5-0.9) 06/18/24 10:25 GFR Calculation 83.0 mL/min (90-130) L 06/18/24 10:25 Glucose 103 mg/dL (65-115) 06/18/24 10:25 Calculated Osmolality 282 mOsm/kg (285-295) L 06/18/24 10:25 Calcium 9.2 mg/dL (8.5-10.5) 06/18/24 10:25 Total Bilirubin 0.3 mg/dL (0.15-1.2) 06/18/24 10:25 AST 39 U/L (0-32) H 06/18/24 10:25 ALT 19 U/L (0-33) 06/18/24 10:25 Alkaline Phosphatase 100 U/L (35-105) 06/18/24 10:25 Total Protein 7.5 g/dL (6.6-8.7) 06/18/24 10:25 Albumin 4.5 g/dL (3.5-5.2) 06/18/24 10:25 Globulin 3.0 g/dL (1.3-4.6) 06/18/24 10:25 All radiology interpretation(s) finalized by discharge Discharge Plan Discharge Patient Disposition: Home Clinical Impression: Influenza A, Right sided temporal headache Condition: Stable Prescriptions: New sumatriptan succinate [Imitrex] 25 mg tablet See Rx Instructions .ROUTE .COMPLEX Qty: 14 0RF Rx Instructions: take 1 tab at onset of headache; if no relief may repeat 1 tab after at least 2 hrs; max = 4 tabs/24 hr No Action losartan 50 mg tablet 1 tab PO DAILY rosuvastatin [Crestor] 10 mg tablet 1 tab PO DAILY celecoxib 200 mg capsule 200 mg PO BID ascorbic acid (vitamin C) [Vitamin C] 500 mg Capsule, Extended Release 500 mg PO DAILY galantamine 8 mg tablet 8 mg PO BID cholecalciferol (vitamin D3) [Vitamin D3] 25 mcg (1,000 unit) Capsule 25 mcg PO DAILY Women's One Daily 18 mg iron-400 mcg-500 mg Ca Tablet 1 tab PO DAILY Hair, Skin and Nails (biotin) 10,000 mcg Tablet,Chewable 10,000 mcg PO DAILY gabapentin 100 mg capsule 300 mg PO QPM Discharge Orders: Discharge ED (Routine); Ordered 06/18/24 Ordered By: Chapis Sahni Patient Instructions: Sumatriptan (By mouth) (Imitrex), Sumatriptan (By mouth), Influenza (DC) Activity Restrictions/Additional Instructions: Patient was positive for Influenza A at Dr. Law office prior to coming here. Scans of her head here were unremarkable. I would like her to follow-up with Dr. Law next week. You have requested something to help with her headache should it come back at home until that appointment. I prescribed you Imitrex. Do not take this medication over the next 24 hours as I gave her a medication here that could react with it. 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 Fwd Documented by User: Gennaro Smith DO 06/18/24 16:57 HPI - Headache General: Chief Complaint: Headache Stated Complaint: Dr Felder - brain bleed Time Seen by Provider: 06/18/24 10:16 Related Data Home Medications ?Medication ?Instructions ?Recorded ?Confirmed losartan 50 mg tablet 1 tab PO DAILY 03/24/23 06/18/24 rosuvastatin 10 mg tablet (Crestor) 1 tab PO DAILY 03/24/23 06/18/24 ascorbic acid (vitamin C) 500 mg 500 mg PO DAILY 08/03/23 06/18/24 capsule,extended release (Vitamin C) biotin 10,000 mcg chewable tablet 10,000 mcg PO DAILY 08/03/23 06/18/24 (Hair, Skin and Nails (biotin)) celecoxib 200 mg capsule 200 mg PO BID 08/03/23 06/18/24 cholecalciferol (vitamin D3) 25 25 mcg PO DAILY 08/03/23 06/18/24 mcg (1,000 unit) capsule (Vitamin D3) galantamine 8 mg tablet 8 mg PO BID 08/03/23 06/18/24 multivit-iron 18 mg-folic acid 400 1 tab PO DAILY 08/03/23 06/18/24 mcg-calcium 500 mg-minerals tablet (Women's One Daily) gabapentin 100 mg capsule 300 mg PO QPM 06/18/24 06/18/24 Previous Rx's ?Medication ?Instructions ?Recorded sumatriptan succinate 25 mg tablet See Rx Instructions PO .COMPLEX 06/18/24 (Imitrex) #14 tabs Allergies Allergy/AdvReac Type Severity Reaction Status Date / Time No Known Allergies Allergy Verified 08/03/23 11:46 [facility] PFS: Medical History No pertinent past medical history No pertinent family history Physical Exam Neuro: MEEK COMA SCALE: document GCS findings Meek coma scale total score: 15 Course Vital Signs: Vital signs: Vital Signs Temperature 97.9 F 06/18/24 10:03 Pulse Rate 71 06/18/24 13:08 Respiratory Rate 18 06/18/24 10:03 Blood Pressure 135/61 06/18/24 13:08 Pulse Oximetry 97 06/18/24 13:08 Oxygen Delivery Me thod Room Air 06/18/24 12:10 MDM - Headache Medical Decision Making Patient is a 68-year-old female here for right temporal/parietal headache for the past [address] scan of her head was unremarkable. CTA imaging of her head and neck unremarkable. Blood work including ESR normal. She was given Reglan/DHE with complete relief of her headache. Upon re-evaluation she is rating it a 0/10. would like something to go home with and can use as needed. Will give her Imitrex but told her she cannot take for 24 hours as she had a ergotamine preparation here. Return precautions discussed. Chart reviewed and patient discussed with midlevel. Agree with assessment and plan. Lab Data 06/18/24 10:25 06/18/24 10:[address] 06/18/24 10:16 IMPRESSION: 1. No acute intracranial hemorrhage or edema. 2. Mild to moderate volume loss and small vessel disease. Mild progression since 2015. Head/Neck CTA 06/18/24 11:18 IMPRESSION: 1. No cervical carotid artery stenosis. Mild plaque at the LEFT bifurcation. 2. Moderate calcified plaque through the carotid cavernous sinuses. Stenosis estimated at 50%. 3. No thrombus or occlusion of the middle cerebral arteries. 4. No cerebral artery aneurysms. Laboratory Results WBC 5.50 10^3/uL (3.29-11.43) 06/18/24 10:25 RBC 4.12 10^6/uL (3.85-5.65) 06/18/24 10:25 Hgb 12.40 g/dL (11.27-16.99) 06/18/24 10:25 Hct 37.6 % (36-47) 06/18/24 10:25 MCV 91.3 fl (85-98) 06/18/24 10:25 MCH 30.1 pg (27-33) 06/18/24 10:25 MCHC 33.0 g/dL (30-55) 06/18/24 10:25 RDW 12.2 % (12.1-15.1) 06/18/24 10:25 Plt Count 179 10^3/cmm (157-399) 06/18/24 10:25 MPV 9.6 fL (7.4-10.4) 06/18/24 10:25 Neut % (Auto) 72.9 % 06/18/24 10:25 Lymph % (Auto) 13.6 % 06/18/24 10:25 [place] % (Auto) 10.9 % 06/18/24 10:25 Eos % (Auto) 1.3 % 06/18/24 10:25 Baso % (Auto) 1.1 % 06/18/24 10:25 Neut # (Auto) 4.01 10^3/uL (1.8-7.7) 06/18/24 10:25 Lymph # (Auto) 0.8 10^3/uL (0.8-4.8) 06/18/24 10:25 [place] # (Auto) 0.6 10^3/uL (0.2-0.9) 06/18/24 10:25 Eos # (Auto) 0.1 10^3/uL (0.0-0.8) 06/18/24 10:25 Baso # (Auto) 0.1 10^3/uL (0.0-0.1) 06/18/24 10:25 Nucleated RBC % (auto) 0 % 06/18/24 10:25 Nucleated RBCs # 0.0 /100WBC 06/18/24 10:25 ESR 7 mm/hr (0-15) 06/18/24 10:25 Sodium 136 mmol/L (136-145) 06/18/24 10:25 Potassium 4.1 mmol/L (3.5-5.1) 06/18/24 10:25 Chloride 99 mmol/L (98-107) 06/18/24 10:25 Carbon Dioxide 24 mmol/L (22-29) 06/18/24 10:25 Anion Gap 17.1 (5-19) 06/18/24 10:25 BUN 13 mg/dL (8-23) 06/18/24 10:25 Creatinine 0.7 mg/dL (0.5-0.9) 06/18/24 10:25 GFR Calculation 83.0 mL/min (90-130) L 06/18/24 10:25 Glucose 103 mg/dL (65-115) 06/18/24 10:25 Calculated Osmolality 282 mOsm/kg (285-295) L 06/18/24 10:25 Calcium 9.2 mg/dL (8.5-10.5) 06/18/24 10:25 Total Bilirubin 0.3 mg/dL (0.15-1.2) 06/18/24 10:25 AST 39 U/L (0-32) H 06/18/24 10:25 ALT 19 U/L (0-33) 06/18/24 10:25 Alkaline Phosphatase 100 U/L (35-105) 06/18/24 10:25 Total Protein 7.5 g/dL (6.6-8.7) 06/18/24 10:25 Albumin 4.5 g/dL (3.5-5.2) 06/18/24 10:25 Globulin 3.0 g/dL (1.3-4.6) 06/18/24 10:25 Discharge Plan Discharge Patient Disposition: Home Clinical Impression: Influenza A, Right sided temporal headache Condition: Stable Prescriptions: New sumatriptan succinate [Imitrex] 25 mg tablet See Rx Instructions .ROUTE .COMPLEX Qty: 14 0RF Rx Instructions: take 1 tab at onset of headache; if no relief may repeat 1 tab after at least 2 hrs; max = 4 tabs/24 hr No Action losartan 50 mg tablet 1 tab PO DAILY rosuvastatin [Crestor] 10 mg tablet 1 tab PO DAILY celecoxib 200 mg capsule 200 mg PO BID ascorbic acid (vitamin C) [Vitamin C] 500 mg Capsule, Extended Release 500 mg PO DAILY galantamine 8 mg tablet 8 mg PO BID cholecalciferol (vitamin D3) [Vitamin D3] 25 mcg (1,000 unit) Capsule 25 mcg PO DAILY Women's One Daily 18 mg iron-400 mcg-500 mg Ca Tablet 1 tab PO DAILY Hair, Skin and Nails (biotin) 10,000 mcg Tablet,Chewable 10,000 mcg PO DAILY gabapentin 100 mg capsule 300 mg PO QPM Discharge Orders: Discharge ED (Routine); Ordered 06/18/24 Ordered By: Chapis Sahni Patient Instructions: Sumatriptan (By mouth) (Imitrex), Sumatriptan (By mouth), Influenza (DC) Activity Restrictions/Additional Instructions: Patient was positive for Influenza A at Dr. Law office prior to coming here. Scans of her head here were unremarkable. I would like her to follow-up with Dr. Law next week. You have requested something to help with her headache should it come back at home until that appointment. I prescribed you Imitrex. Do not take this medication over the next 24 hours as I gave her a medication here that could react with it. Print Language: Qatari Coding Level of Care Code ED Soil Conservation Technician for [place]
[2024-06-18 10:39] LABS: Basophils # 0.1 10^3/uL (0.0-0.1); Basophils % 1.1 %; Eosinophils # 0.1 10^3/uL (0.0-0.8); Eosinophils % 1.3 %; Hematocrit 37.6 % (36-47); Lymphocytes # 0.8 10^3/uL (0.8-4.8); Lymphocytes % 13.6 %; Mean Corpuscular Hemoglobin 30.1 pg (27-33); Mean Corpuscular Volume 91.3 fl (85-98); Mean Platelet Volume 9.6 fL (7.4-10.4); Monocytes # 0.6 10^3/uL (0.2-0.9); Monocytes % 10.9 %; Neutrophils # 4.01 10^3/uL (1.8-7.7); Neutrophils % 72.9 %; Nucleated Red Blood Cells % 0 %; Platelet Count 179 10^3/cmm (157-399); Red Blood Count 4.12 10^6/uL (3.85-5.65); Red Cell Distribution Width 12.2 % (12.1-15.1)
[2024-06-18 10:50] LABS: Alanine Aminotransferase 19 U/L (0-33); Albumin Level 4.5 g/dL (3.5-5.2); Alkaline Phosphatase 100 U/L (35-105); Anion Gap 17.1 (5-19); Aspartate Amino Transferase 39 U/L (0-32); Blood Urea Nitrogen 13 mg/dL (8-23); Calcium 9.2 mg/dL (8.5-10.5); Carbon Dioxide 24 mmol/L (22-29); Chloride 99 mmol/L (98-107); Creatinine Clr Calc Pharmacy 70.0911; Glucose 103 mg/dL (65-115); Osmolality Calculated 282 mOsm/kg (285-295); Potassium 4.1 mmol/L (3.5-5.1); Sodium 136 mmol/L (136-145); Total Bilirubin 0.3 mg/dL (0.15-1.2); Total Protein 7.5 g/dL (6.6-8.7)
--- NOTE | 2024-06-18 11:18 | CT_ITS ---
WS: [id number] CT ANGIOGRAM CEREBRAL AND CAROTID ARTERIES HISTORY: R sided severe OROPEZA TECHNIQUE: CT angiogram is performed of the carotid and cerebral arteries. During arterial injection imaging is obtained from the skull vertex to the aortic arch in 1.25 mm imaging. Coronal and sagittal reformats are submitted. Additional multi planar reformats of the carotid and cerebral arteries are submitted, MIP imaging also reviewed. NASCET criteria utilized. All CT scans at [facility] use at least one of these dose optimization techniques: automated exposure control; mA and/or kV adjustment per patient size (includes targeted exams where dose is matched to clinical indication); or iterative reconstruction. CONTRAST: Omnipaque 350; 100 mL IV. DLP: 5.44 mGy.cm COMPARISON: Noncontrast CT head 06/18/2024 Carotid Angiogram: Right carotid: Common carotid artery: Arises normally from the innominate artery. No significant plaque or stenosis. Internal carotid artery: No plaque or stenosis. External carotid artery: Patent. Left carotid: Common carotid artery: Arises normally from the aorta. No significant plaque or stenosis. Internal carotid artery: Small amount of plaque at the bifurcation. No stenosis. External carotid artery: Patent. Right vertebral artery: Mildly dominant vertebral artery. Patent throughout its course. Left vertebral artery: Smaller caliber LEFT vertebral artery but it is patent. Subclavian arteries: No stenosis or significant abnormality. Upper thorax: Normal. Thyroid gland: Mild thyroid atrophy. Heavily calcified nodule in the lower pole of the LEFT thyroid measures 10 mm. Small bilateral benign-appearing cervical chain lymph nodes. Calcification in the aortic arch. Osseous structures: Increase in thoracic kyphosis. CEREBRAL ANGIOGRAM: Intracranial vertebral arteries: Dominant RIGHT vertebral artery. Small caliber distal LEFT vertebral artery but it is patent. Basilar artery: No significant stenosis or occlusion. No aneurysm. Intracranial Internal carotid arteries: Moderate calcification through the carotid cavernous sinuses. Estimated at at least 50% stenosis and slightly greater on the LEFT. No occlusion. No thrombus. Middle cerebral arteries: Normal. Anterior cerebral arteries and ACOM: Normal. Posterior cerebral arteries and PCOM's: Normal. Dural venous sinuses are normally enhancing. Mastoid air cells: Normal. Paranasal sinuses: Normal. Calvarium: Normal. CT/CT angio headneck* [id number] IMPRESSION: 1. No cervical carotid artery stenosis. Mild plaque at the LEFT bifurcation. 2. Moderate calcified plaque through the carotid cavernous sinuses. Stenosis e stimated at 50%. 3. No thrombus or occlusion of the middle cerebral arteries. 4. No cerebral artery aneurysms.
[2024-06-18 11:23] LABS: Erythrocyte Sedimentation Rate 7 mm/hr (0-15)
[2024-06-18] MEDS: metoclopramide 5 mg/mL SDV 2 mL 10 MG IVP (11:45)
[2024-06-18] MEDS: iohexol 350 mg/mL 500 mL Btl (per mL) IV (12:01)
[2024-06-18 12:10] VITALS: BP 132/60; PULSE 73; O2SAT 100
[2024-06-18] MEDS: dihydroergotamine 1 mg/mL Inj IVP (12:13)
[2024-06-18 13:08] VITALS: BP 135/61; PULSE 71; O2SAT 97
== END 2024-06-18 13:16 | disposition home or self-care (01) ==
PROVIDERS: Emergency Provider Physician Assistant
DX: J10.1 Influenza due to other identified influenza virus with other respiratory manifestations (principal); R51.9 Headache, unspecified; Z11.52 Encounter for screening for COVID-19
CPT/HCPCS: 70450; 70496; 70498; 80053; 85025; 85651; 96374; 96375; 99285; J1110; J2765

== ENCOUNTER 2024-11-01 08:37 | Outpatient (CLI) | payer MEDICARE, BC, SELFPAY ==
--- NOTE | 2024-11-01 08:48 | MM_ITS ---
WS: [id number] BILATERAL 3D TOMOSYNTHESIS DIGITAL SCREENING MAMMOGRAPHY WITH CAD CLINICAL INFORMATION: SCREENING HISTORY: Screening mammogram. No current complaints. COMPARISON: 2020 TECHNIQUE: Bilateral CC and MLO views. FINDINGS: Scattered fibroglandular densities bilaterally. No suspicious focal mass, asymmetry, calcifications, or architectural distortion. No evidence of malignancy. Punctate and lucent centered calcifications. Dense nodular subareolar tissue similar to the prior studies MM/MM scr tomosynthesis [id number] IMPRESSION: DENSITY: There are scattered areas of fibroglandular density. BI-RADS: 2 - Benign. FOLLOW UP: 1 Year Follow-up Recommend return to annual screening mammography.
== END 2024-11-01 08:38 | disposition home or self-care (01) ==
LOC: RAD 08:38
PROVIDERS: PCP Family Medicine; Visit Provider Family Medicine
DX: Z12.31 Encounter for screening mammogram for malignant neoplasm of breast (principal)
CPT/HCPCS: 77063; 77067